=== PATIENT | female | born 1970 | race African-American/Black ===

== ENCOUNTER 2017-03-17 08:58 | Outpatient (CLI) | payer OTHER ==
--- NOTE | 2017-03-17 12:14 | MRI ---
MRI LUMBAR SPINE: HISTORY: This is a 46-year-old with a history of radicular pain. FINDINGS: Multiplanar, multisequence noncontrast-enhanced MRI images lumbar spine obtained. For the purposes of this dictation, the last freely mobile vertebral body will be considered to be th e L5 vertebral body. All other vertebral bodies are numbered according to this. T12-L1, L1-2, L2-3: Unremarkable. L3-4: There is mild facet and ligamentum flavum hypertrophy. The central canal and neural foramen a re patent. L4-5: There is some disk desiccation. There is mild facet hypertrophy. There is a mild broad-based disk bulge seen. The neural foramen are patent, except for some mild left-sided neural foraminal na rrowing. The right neural foramen is patent. L5-S1: Mild facet hypertrophy is seen. The central canal is patent. The neural foramen are also pa tent. IMPRESSION: Small left L4-5 foraminal and far lateral disk protrusion minimally but not significantly compressing the exiting left L4 nerve root. POS: MIKE
== END 2017-03-17 08:59 | disposition home or self-care (01) ==
LOC: MRI 08:58
PROVIDERS: ATTEND Family Medicine
DX: M54.16 Radiculopathy, lumbar region (principal); M54.12 Radiculopathy, cervical region
CPT/HCPCS: 72148